=== PATIENT | female | born 1990 | race American Indian/Alaskan Native ===

== ENCOUNTER 2018-02-12 20:55 | Emergency (ER) | payer SELFPAY ==
[2018-02-12] MEDS ORDERED: TYLENOL ONE (21:17)
[2018-02-12 23:36] LABS: Basophils % (Auto) 0.4 % (0.0-1.8); Hematocrit 45.4 % (30.3-42.9); Lymphocytes % (Auto) 7.4 % (13.4-35.0); Mean Corpuscular HGB Conc 33 % (30-34); Mean Corpuscular Hemoglobin 31 pg (28-32); Mean Corpuscular Volume 92 fl (79-97); Monocytes # (Auto) 0.4 K/mm3 (0.0-0.8); Monocytes % (Auto) 2.9 % (0.0-7.3); Platelet Count 319 K/mm3 (140-440); Red Blood Count 4.92 M/mm3 (3.65-5.03); Red Cell Distribution Width 13.4 % (13.2-15.2)
[2018-02-12] MEDS ORDERED: ZOFRAN IV ONE (23:43)
[2018-02-12] MEDS ORDERED: NACL 0.9% 1000 ML 1,000 ML IV ONE (23:43)
[2018-02-12] MEDS ORDERED: MORPHINE IV ONE (23:43)
--- NOTE | 2018-02-12 23:43 | Emergency Department Report ---
ED Abdominal Pain HPI - General Chief Complaint: Abdominal Pain Stated Complaint: N/V Time Seen by Provider: 02/12/18 23:34 Source: patient Mode of arrival: Wheelchair Limitations: No Limitations - History of Present Illness Initial Comments: 27 yo female presents with LLQ abd pain since this morning. +hematemesis. Has had GI problems "all my life" No official dx. Normal BM this afternoon. No vaginal discharge or bleeding She is a patient at [facility] on [address] for MD[facility]. She "needs to get my meds in order". MD Complaint: abdominal pain -: Gradual Location: LLQ Radiation: none Migration to: no migration Severity: severe Severity scale (0 -10): 10 Quality: cramping, stabbing Consistency: constant Improves With: nothing Worsens With: nothing Associated Symptoms: nausea, vomiting - Related Data Previous Rx's Medication Instructions Recorded Last Taken Type Promethazine [Phenergan TAB] 25 mg PO Q6HR PRN #20 tab 02/13/18 Unknown Rx Allergies Allergy/AdvReac Type Severity Reaction Status Date / Time amoxicillin Allergy Hives Verified 02/12/18 22:27 ED Review of Systems ROS: Stated complaint: N/V Other details as noted in HPI ED Past Medical Hx - Past Medical History Hx Psychiatric Treatment: Yes - Surgical History Past Surgical History?: No - Social History Smoking Status: Current Every Day Smoker Substance Use Type: None - Medications Home Medications: Home Medications Medication Instructions Recorded Confirmed Last Taken Type Promethazine [Phenergan TAB] 25 mg PO Q6HR PRN #20 tab 02/13/18 Unknown Rx ED Physical Exam - General Limitations: No Limitations General appearance: alert, in no apparent distress - Head Head exam: Present: atraumatic, normocephalic - Eye Eye exam: Present: normal appearance - ENT ENT exam: Present: mucous membranes moist - Neck Neck exam: Present: normal inspection - Respiratory Respiratory exam: Present: normal lung sounds bilaterally. Absent: respiratory distress - Cardiovascular Cardiovascular Exam: Present: regular rate, normal rhythm. Absent: systolic murmur, diastolic murmur, rubs, gallop - GI/Abdominal GI/Abdominal exam: Present: soft, tenderness (LLQ ), guarding, normal bowel sounds. Absent: distended, rebound - Extremities Exam Extremities exam: Present: normal inspection - Back Exam Back exam: Present: normal inspection - Neurological Exam Neurological exam: Present: alert, oriented X3 - Psychiatric Psychiatric exam: Present: normal affect, normal mood - Skin Skin exam: Present: warm, dry, normal color, other (multiple linear excoriations and healing lacerations left forearms). Absent: rash ED Course Vital Signs 02/12/18 02/12/18 02/12/18 22:28 23:33 23:34 Temperature 98.6 F Pulse Rate 82 63 71 Respiratory 16 11 L 19 Rate Blood Pressure 163/78 O2 Sat by Pulse 100 Oximetry 02/12/18 02/12/18 02/12/18 23:35 23:37 23:39 Temperature Pulse Rate 68 76 63 Respiratory 14 17 17 Rate Blood Pressure 144/73 144/73 144/73 O2 Sat by Pulse Oximetry 02/12/18 02/12/18 02/12/18 23:41 23:43 23:45 Temperature Pulse Rate 79 75 67 Respiratory 13 20 13 Rate Blood Pressure 149/75 149/75 149/75 O2 Sat by Pulse Oximetry 02/12/18 02/12/18 02/12/18 23:47 23:49 23:51 Temperature Pulse Rate 64 68 62 Respiratory 22 17 16 Rate Blood Pressure 149/75 149/75 149/75 O2 Sat by Pulse Oximetry 02/12/18 02/12/18 02/12/18 23:53 23:55 23:57 Temperature Pulse Rate 72 68 66 Respiratory 14 13 12 Rate Blood Pressure 149/75 149/75 149/75 O2 Sat by Pulse Oximetry 02/12/18 02/13/18 02/13/18 23:59 00:01 00:03 Temperature Pulse Rate 66 62 66 Respiratory 13 14 18 Rate Blood Pressure 149/75 149/75 178/83 O2 Sat by Pulse Oximetry 02/13/18 02/13/18 00:05 00:12 Temperature Pulse Rate 68 Respiratory 22 20 Rate Blood Pressure 178/83 O2 Sat by Pulse Oximetry - Reevaluation(s) Reevaluation #1: 02/12/18 23:45 after vomiting, patient developed severe generalized abd pain. Patient has liquid yellow green emesis in collection bag no hematemesis ED Medical Decision Making - Lab Data Result diagrams: 02/12/18 23:05 02/12/18 23:05 Laboratory Results - last 24 hr 02/12/18 02/12/18 02/12/18 23:05 23:05 23:37 WBC 13.0 H RBC 4.92 Hgb 15.0 H Hct 45.4 H MCV 92 MCH 31 MCHC 33 RDW 13.4 Plt Count 319 Lymph % (Auto) 7.4 L Mer[place] % (Auto) 2.9 Eos % (Auto) 0.0 Baso % (Auto) 0.4 Lymph # 1.0 L Merrick # 0.4 Eos # 0.0 Baso # 0.0 Seg Neutrophils % 89.3 H Seg Neutrophils # 11.6 H Sodium 141 Potassium 4.7 Chloride 95.2 L Carbon Dioxide 18 L Anion Gap 33 BUN 9 Creatinine 0.7 Estimated GFR > 60 BUN/Creatinine Ratio 13 Glucose 143 H Calcium 10.1 Total Bilirubin 0.40 AST 26 ALT 16 Alkaline Phosphatase 75 Total Protein 9.1 H Albumin 4.7 Albumin/Globulin Ratio 1.1 HCG, Qual Negative Urine Color Urine Turbidity Urine pH Ur Specific [place] Urine Protein Urine Glucose (UA) Urine Ketones Urine Blood Urine Nitrite Urine Bilirubin Urine Urobilinogen Ur Leukocyte Esterase Urine WBC (Auto) Urine RBC (Auto) U Epithel Cells (Auto) Urine Mucus 02/12/18 Unknown WBC RBC Hgb Hct MCV MCH MCHC RDW Plt Count Lymph % (Auto) [place] % (Auto) Eos % (Auto) Baso % (Auto) Lymph # [place] # Eos # Baso # Seg Neutrophils % Seg Neutrophils # Sodium Potassium Chloride Carbon Dioxide Anion Gap BUN Creatinine Estimated GFR BUN/Creatinine Ratio Glucose Calcium Total Bilirubin AST ALT Alkaline Phosphatase Total Protein Albumin Albumin/Globulin Ratio HCG, Qual Urine Color Yellow Urine Turbidity Clear Urine pH 6.0 Ur Specific [place] 1.031 H Urine Protein >500 Urine Glucose (UA) Neg Urine Ketones 80 Urine Blood Neg Urine Nitrite Neg Urine Bilirubin Neg Urine Urobilinogen 4.0 Ur Leukocyte Esterase Neg Urine WBC (Auto) 2.0 Urine RBC (Auto) 7.0 U Epithel Cells (Auto) 2.0 Urine Mucus 3+ - Medical Decision Making Ms. Pimentel presents with LLQ and generalized abd pain. Increased anion gap and metabolic acidosis evident of volume contraction. Given IVF. No acute process seen on CT. Prescribed promethazine. Transferred back to [facility] Critical care attestation.: If time is entered above; I have spent that time in minutes in the direct care of this critically ill patient, excluding procedure time. ED Disposition Clinical Impression: Abdominal pain Disposition: [id number] ANOTHER TYPE HLTHCARE Is pt being admited?: No Does the pt Need Aspirin: No Condition: Stable Instructions: Abdominal Pain (ED) Prescriptions: Promethazine [Phenergan TAB] 25 mg PO Q6HR PRN #20 tab PRN Reason: Nausea Referrals: [facility] [Outside] - 3-5 Days Time of Disposition: 04:41
[2018-02-12 23:45] LABS: Calcium 10.1 mg/dL (8.4-10.2); Hemolysis Index 62
[2018-02-13] MEDS ORDERED: MORPHINE IV ONE (00:33)
[2018-02-13 00:37] LABS: Bilirubin,Urine NEG (Negative); Blood,Urine NEG (Negative); Color,Urine Yellow (Yellow); Mucus,Urine 3+ /HPF
[2018-02-13 00:46] LABS: Protein,Urine >500 mg/dL (Negative)
[2018-02-13 02:03] LABS: Alanine Aminotransferase 16 units/L (7-56); Albumin 4.7 g/dL (3.9-5); BUN/Creatinine Ratio 13; Blood Urea Nitrogen 9 mg/dL (7-17)
--- NOTE | 2018-02-13 03:16 | Cat Scan Report ---
FINAL REPORT EXAM: CT ABDOMEN PELVIS W CON HISTORY: abdominal pain LLQ TECHNIQUE: Routine axial imaging was obtained of the abdomen and pelvis following the intravenous injection of 100 cc of Omnipaque 350. Delayed imaging was obtained through the kidneys ureters and bladder. Sagittal coronal reconstructions were reviewed also. FINDINGS: The lung bases are clear. Pleural fluid is not seen. The liver, gallbladder, pancreas, spleen, and adrenal glands appear normal. The kidneys enhance normally. There is no evidence of hydronephrosis. The vascular structures enhance normally. The bowel loops are normal in caliber and course. The appendix is not enlarged. There is no evidence of free fluid or adenopathy. In the pelvis the uterus and bladder appear normal. There are no adnexal masses. The skeletal structures reveal disc degeneration at the L4-5 level. IMPRESSION: No acute process in the abdomen and pelvis. Disc degeneration at the L4-5 level.
[2018-02-13] MEDS ORDERED: TORADOL ONE (03:31)
[2018-02-13 05:51] VITALS: BP 145/73
== END 2018-02-13 06:43 | disposition other institution (70) ==
LOC: EEVIPCON 20:55 → ED 20:55
DX: R10.32 Left lower quadrant pain (principal); F17.200 Nicotine dependence, unspecified, uncomplicated
CPT/HCPCS: 36415; 74177; 80053; 81001; 84703; 85025; 96361; 96374; 96375; 96376; 99285; J2270; J2405; J7030; Q9967; J1885